=== PATIENT | female | born 1970 | race Caucasian/White ===

== ENCOUNTER 2024-06-26 14:21 | Emergency (ER) | payer OTHER, SELFPAY ==
[2024-06-26 14:25] VITALS: BP 142/73; PULSE 76; TEMP 36.9; O2SAT 99; BMI 21.4
--- NOTE | 2024-06-26 14:31 | XR_ITS ---
The [address] [address] Patient Name: CRESCENCIO CASTRO MRN: [id number] date: 1970 Sex: F Assigned Patient Location: ER Current Patient Location: ER Accession/Order Number: [id number] Exam Date: 06/26/2024 14:45 Report Date: 06/26/2024 16:34 At the request of: MIKAEL HANSEN Procedure: XR hand MIGNON min 3v EXAM: XR hand MIGNON min 3v HISTORY: Swelling, no trauma COMPARISON: None. TECHNIQUE: 6 views of bilateral hands FINDINGS: No acute fracture seen. Soft tissue swelling is noted. Joint alignment is normal. Joint spaces are preserved. No significant periarticular erosive changes are seen. XR/XR hand MIGNON min 3v IMPRESSION: No acute fracture or malalignment. Soft tissue swelling is seen. Electronically authenticated by: ALECIA TEJADA Date: 06/26/2024 16:34
--- NOTE | 2024-06-26 14:32 | ED.SKABFB1 ---
HPI - Skin/Abscess/Foreign Bdy General Chief complaint: Skin/Abscess/Foreign Body Stated complaint: RASH AN SWOLLEN HANDS Time Seen by Provider: 06/26/24 14:23 Source: patient Mode of arrival: walk-in Limitations: no limitations History of Present Illness HPI narrative: 53-year-old female presents to the emergency department for swelling to both hands. She has been having this for a week or 2 and has been getting worse. Her hands feel tight. No other area of her body is like this including her feet. She thinks it might be due to her work. 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 Similar circumstances happened a year ago but not to this degree. 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 No new medications Related Data Home Medications ?Medication ?Instructions ?Recorded ?Confirmed gabapentin 100 mg capsule 100 mg PO TID 06/26/24 06/26/24 Previous Rx's ?Medication ?Instructions ?Recorded prednisone 10 mg tablet See Rx Instructions .Route 06/26/24 .COMPLEX #30 tabs Allergies Allergy/AdvReac Type Severity Reaction Status Date / Time aspirin AdvReac Mild Hives Verified 06/26/24 14:25 Penicillins AdvReac Mild Hives Verified 06/26/24 14:25 Review of Systems ROS Narrative A ten point review of systems is negative except as noted above. Exam Narrative Exam Narrative: Nurses note and vital signs reviewed and patient is not hypoxic. General: The patient appears well and in no apparent distress. Patient is resting comfortably on cart. Skin: Warm, dry, no pallor noted. There is no rash noted. Head: Normocephalic, atraumatic Eye: Normal conjunctiva, no drainage Ears, Nose, Mouth, and Throat: oral mucosa is moist. Nares patent. Cardiovascular: Regular Rate and Rhythm Respiratory: Patient is in no distress, no accessory muscle use, lungs are clear to auscultation, no wheezing, rales or rhonchi Back: non-tender GI: Soft and nontender Musculoskeletal: Her hands are examined. The skin is mildly dry in all 10 digits are mildly swollen. There is no localized erythema and there is no bruising or rash. Fingers have good range of motion though full flexion is difficult because of the swelling. Neurological: A&O, normal speech Psychiatric: Cooperative Constitutional Vital Signs, click to edit/add: Last Vital Signs Temp 98.5 F 06/26/24 14:25 Pulse 76 06/26/24 14:25 Resp 18 06/26/24 14:25 BP 142/73 H 06/26/24 14:25 Pulse Ox 99 06/26/24 14:25 O2 Del Method Room Air 06/26/24 14:25 Course Vital Signs Vital signs: Vital Signs Temperature 98.5 F 06/26/24 14:25 Pulse Rate 76 06/26/24 14:25 Respiratory Rate 18 06/26/24 14:25 Blood Pressure 142/73 H 06/26/24 14:25 Pulse Oximetry 99 06/26/24 14:25 Oxygen Delivery Method Room Air 06/26/24 14:25 Temperature 98.5 F 06/26/24 14:25 Pulse Rate 76 06/26/24 14:25 Respiratory Rate 18 06/26/24 14:25 Blood Pressure 142/73 H 06/26/24 14:25 Pulse Oximetry 99 06/26/24 14:25 Oxygen Delivery Method Room Air 06/26/24 14:25 MDM - Skin/Abscess/Foreign Bdy MDM Narrative Medical decision making narrative: Labs including ESR are normal as are her x-rays. Should be placed on prednisone. The possibility of contact dermatitis was discussed with her. Diagnosis and follow-up were discussed thoroughly. Differential Diagnosis Differential diagnosis: Likely allergic reaction to drug, eczema and contact dermatitis Lab Data Attestation: I reviewed the patient's lab results. Labs: Lab Results 06/26/24 Range/Units 14:37 WBC 4.2 (4.0-11.0) 10^3/uL RBC 3.81 L (4.20-5.40) 10^6/uL Hgb 11.6 L (12.0-16.0) g/dL Hct 35.2 L (36.0-48.0) % MCV 92.4 (81.0-99.0) fL MCH 30.4 (26.7-34.0) pg MCHC 33.0 (29.9-35.2) g/dL RDW 12.8 (11.0-15.0) % Plt Count 192 (150-450) 10^3/uL MPV 10.1 (9.5-13.5) fL Neut % (Auto) 37.5 L (43.0-75.0) % Lymph % (Auto) 42.3 (20.5-60.0) % [place] % (Auto) 14.5 H (1.7-12.0) % Eos % (Auto) 4.3 (0.9-7.0) % Baso % (Auto) 1.4 (0.2-2.0) % Neut # (Auto) 1.6 (1.4-6.5) 10^3/uL Lymph # (Auto) 1.8 (1.2-3.8) 10^3/uL [place] # (Auto) 0.6 (0.3-0.8) 10^3/uL Eos # (Auto) 0.2 (0.0-0.7) 10^3/uL Baso # (Auto) 0.1 (0.0-0.1) 10^3/uL Abs Immat Gran (auto) 0.00 (0.00-0.03) 10^3/uL Imm/Tot Granulo (auto) 0.0 (0.0-0.5) % ESR 5 (<=30) mm/hr Sodium 139 (136-145) mmol/L Potassium 3.6 (3.5-5.1) mmol/L Chloride 104 (98-107) mmol/L Carbon Dioxide 28.0 (21.0-32.0) mmol/L Anion Gap 10.6 BUN 24.0 H (7.0-18.0) mg/dL Creatinine 0.63 (0.55-1.02) mg/dL Est GFR ( Amer) >60 (>=60 mL/min/1.73m^2) Est GFR (Non-Af Amer) >60 (>=60 mL/min/1.73m^2) BUN/Creatinine Ratio 38.1 Glucose 92 (74-106) mg/dL Calcium 8.5 (8.5-10.1) mg/dL Imaging Data Bilateral hand x-rays: Radiologist's impression: ITS Impressions Hand X-Ray 06/26/24 14:31 IMPRESSION: No acute fracture or malalignment. Soft tissue swelling is seen. Electronically authenticated by: ALECIA TEJADA Date: 06/26/2024 16:34 Discharge Plan Discharge Chief Complaint: Skin/Abscess/Foreign Body Clinical Impression: Bilateral hand swelling Patient Disposition: Home, Self-Care Time of Disposition Decision: 16:43 Condition: Good Mode of Transportation: Private Vehicle Prescriptions / Home Meds: New prednisone 10 mg tablet See Rx Instructions .ROUTE .COMPLEX Qty: 30 0RF Rx Instructions: 4 by mouth daily for three days then 3 by mouth daily for three days then 2 by mouth daily for three days then 1 by mouth daily for three days No Action gabapentin 100 mg capsule 100 mg PO TID Print Language: Citizen Of [place] Instructions: Contact Dermatitis (ED), Edema (ED) Referrals: RUDY CURRIE [Primary Care Provider] - 1 week
[2024-06-26 14:43] LABS: Basophils Absolute Auto 0.1 10^3/uL (0.0-0.1); Basophils Percent Auto 1.4 % (0.2-2.0); Eosinophils Absolute Auto 0.2 10^3/uL (0.0-0.7); Eosinophils Percent Auto 4.3 % (0.9-7.0); Hematocrit 35.2 % (36.0-48.0); Hemoglobin 11.6 g/dL (12.0-16.0); Lymphocytes Absolute Auto 1.8 10^3/uL (1.2-3.8); Lymphocytes Percent Auto 42.3 % (20.5-60.0); Mean Corpuscular Hemoglobin 30.4 pg (26.7-34.0); Mean Corpuscular Volume 92.4 fL (81.0-99.0); Mean Platelet Volume 10.1 fL (9.5-13.5); Monocytes Absolute Auto 0.6 10^3/uL (0.3-0.8); Monocytes Percent Auto 14.5 % (1.7-12.0); Neutrophils Absolute Auto 1.6 10^3/uL (1.4-6.5); Neutrophils Percent Auto 37.5 % (43.0-75.0); Platelet Count 192 10^3/uL (150-450); Red Blood Count 3.81 10^6/uL (4.20-5.40); Red Cell Distribution Width 12.8 % (11.0-15.0); White Blood Count 4.2 10^3/uL (4.0-11.0)
[2024-06-26 14:49] LABS: Erythrocyte Sedimentation Rate 5 mm/hr (<=30)
[2024-06-26 14:51] LABS: Anion Gap 10.6; BUN Creatinine Ratio 38.1; Calcium 8.5 mg/dL (8.5-10.1); Chloride 104 mmol/L (98-107); Estimated GFR (African America >60 (>=60 mL/min/1.73m^2); Estimated GFR (Non-African Ame >60 (>=60 mL/min/1.73m^2); Glucose 92 mg/dL (74-106); Potassium 3.6 mmol/L (3.5-5.1); Sodium 139 mmol/L (136-145)
== END 2024-06-26 16:52 | disposition home or self-care (01) ==
PROVIDERS: Emergency Provider Emergency Medicine; PCP Nurse Practitioner
DX: M79.89 Other specified soft tissue disorders (principal); M47.812 Spondylosis without myelopathy or radiculopathy, cervical region
CPT/HCPCS: 36415; 73130; 80048; 85025; 85652; 99284